=== PATIENT | female | born 1975 | race Caucasian/White ===

== ENCOUNTER → 2016-07-06 | Outpatient (CLI) | payer OTHER ==
--- NOTE | 2016-07-06 12:09 | US ---
Thyroid Ultrasound History: 41-year-old with increasing left thyroid nodule, biopsied in 2014 with benign results. Comparison: Thyroid ultrasound of September 26, 2014. Technique: Longitudinal and transverse ultrasound imaging of the thyroid gland. Findings: The right lobe of the thyroid measures 1.6 x 1.6 x 5.4 cm. The thyroid is mildly heterogen eous, with a 2-mm probable simple cyst in the inferior right thyroid, not significantly changed. The left lobe of the thyroid measures 2.8 x 3.0 x 5.3 cm. A heterogeneous nodule in the mid left thy roid measuring 2.5 x 3.0 x 3.7 cm, previously measured 4.0 x 2.9 x 1.9 cm. A hypoechoic 5 x 3 x 8 mm nodule in the right isthmus, previously measured 1.0 x 0.9 x 0.5 cm. Impression: No significant change in the size of a heterogeneous left thyroid nodule, with slight va riation in size related in part to caliber placement and measurement plane.
== END ==
LOC: FIMAGING 09:28
PROVIDERS: ATTEND Family Medicine
DX: E04.1 Nontoxic single thyroid nodule (principal)